=== PATIENT | female | born 1975 | race Caucasian/White ===

== ENCOUNTER 2016-11-07 18:50 | Emergency (ER) | payer BC, OTHER ==
[2016-11-07] MEDS ORDERED: Lidocaine 1% w/Epinephrine 1:100K 20 ML VIAL ONE (19:03)
[2016-11-07] MEDS ORDERED: Bacitracin Zinc 1 Packet ONE (19:39)
== END 2016-11-07 19:56 | disposition home or self-care (01) ==
LOC: NAV ERS 18:50
DX: S51.812A Laceration without foreign body of left forearm, initial encounter (principal); I10 Essential (primary) hypertension; F17.210 Nicotine dependence, cigarettes, uncomplicated; Z79.899 Other long term (current) drug therapy; W26.0XXA Contact with knife, initial encounter
CPT/HCPCS: 12001; J2001